=== PATIENT | female | born 1960 | race Caucasian/White ===

== ENCOUNTER → 2023-08-13 | Outpatient (CLI) | payer OTHER, SELFPAY ==
--- NOTE | 2023-08-13 | IMM_PTH ---
PATHOLOGY RESULTS PATIENT: MANNY DUGAN LOC: [facility] U#:[id number] AGE/SX: 63/F ROOM: RE08/13/[address]: Dr. Morris Ryan MD : 1960 BED: DIS: 08/13/2023 SPEC #: [id number] RECD: 08/15/23 14:31 STATUS: HEATHER REQ #: [id number] MIGUEL: 08/13/23 00:[address]: Morris Ryan DEPT: IMMUNOHISTOCHEMISTRY RECD BY: Amber Mehta ENTERED: 08/15/23 14:32 SP TYPE: IMMUNO OTHR DR: CELSO Bernard Tissues: Left breast, NOS Procedures: CALPONIN-1 (add) CK5-6 (add) CK8 (add) E-CAD (add) HER2 SIMRAN (add) KI-67 (add) P53 (add) FL (add) IN SITU HYBRIDIZATION P40 (add) ER (initial) PHYSICIAN & [address] [address] SPECIMEN INFORMATION: Tissue Source: Left breast Clinical Info: Left breast mass Specimen Number: [id number] CPT code: 37808, 21709 x6, 16318 x3, 38970 x2 METHODOLOGY: Deparaffinized sections of prefer/formalin-fixed tissue or PAP/DQ stained slides are incubated with monoclonal/polyclonal antibodies/oligonucleotide probes. Localization is made via biotin free immunoperoxidase method. Appropriate controls are performed and reacted as expected. Results on target cell population are indicated in the following table: RESULTS: ANTIBODY / CLONE RESULT E-Cad (ECH-6) positive CK8 (97ihyvY46) positive Calponin-1 (UE945N) negative (background staining) CK5-6 (D5 & 1684) positive (tumor cells) P40 (BC28) negative P53 (DO-7) positive, missense mutation pattern Ki-67 (30-9) positive, low MORPHOMETRIC ANALYSIS ER (clone 6F11) 0% FL (clone 16/1E2) 0% Her-2Neu (clone CB11) 1-2+ The prognostic test for HER2 is performed on formalin-fixed paraffin embedded tissue. A 3+ (positive) staining pattern is defined as intense, homogeneous, complete, circumferential membranous staining in >10% of contiguous tumor cells. A similar weak (2+) staining pattern is interpreted as equivocal. SIDDHARTHA follow-up testing is recommended for all equivocal cases. Positivity/negativity for ER/FL is reported if > or < 1% of the tumor cells are immuno- reactive, respectively. The ASCO/CAP criteria is used for scoring. Reference: Journal of Clinical Oncology, 2013; 31:0289-4577 & 2010; 16:1856-2571. Ischemic time: Less than one hour. Duration of fixation: 29.5 Hrs; Sample Adequate: Yes. These assays have not been validated on decalcified tissues. Results should be interpreted with caution given the likelihood of false negativity on decalcified specimens or fixation greater than 72 hours. Alternative testing methods (FISH/dualISH for Her2; gene expression for ER) are recommended, if applicable. Please notify the laboratory if additional testing is required. These tests were developed and their performance characteristics determined by [facility]. They may not have been cleared or approved by the U.S. Food and Drug Administration. The FDA has determined that such clearance or approval is not necessary. The above immunohistochemical/dualISH markers are ordered and reviewed by the Pathologist. INTERPRETATION: Left breast, core biopsy: Invasive ductal carcinoma. Negative for estrogen receptors (unfavorable prognostic indicator). Negative for progesterone receptors (unfavorable prognostic indicator). Equivocal for overexpression of TVN8azb. See comment. SJ:israel 08/19/2023 Comment: The tumor shows basal-like pattern. This case has been reviewed in consultation with Dr. Wade who concurs with the above diagnosis. ADDENDUM ADDENDUM 08/20/2023 12:28 IN SITU HYBRIDIZATION (SIDDHARTHA) FOR HER2 Interpretation: Positive / Amplified HER2 : CEP-17 Ratio: 2.3 Average HER2 Signal: 3.85 Average CEP-17 Signal: 1.65 Number of Tumor Cells Scanned: 50 Interpretative Information: The INFORM HER2 Dual SIDDHARTHA DNA Probe Cocktail assay is performed on formalin-fixed paraffin embedded tissue and determines HER2 gene status by detecting HER2 copies via silver in situ hybridization (SISH) and Chromosome 17 copies via chromogenic red in situ hybridization on tumor cells. A minimum of 20 cells representing > 10% of contiguous and homogeneous invasive tumor cells were analyzed. HER2 gene status is classified as Non-amplified (HER2/Chr17 ratio < 2.0) or Amplified (HER2/Chr17 ratio greater than or equal to 2.0). If the resulting HER2/Chr17 ratio falls within 1.8 - 2.2 (Borderline), retesting by FISH is recommended. Reference: Tasneem AC, Pepito BLACKH, Brionna DG, et al: Recommendations for Human Epidermal Growth Factor Receptor 2 Testing in Breast Cancer: [place] [employer] / [employer] [place] [employer] Clinical Practice Guideline Update. J Clin Oncol 31:4652-7048, 2013. SJ:israel 08/20/2023 Case has been reviewed in consultation with Dr. Wade who concurs with the above diagnosis. IDC:AM
--- NOTE | 2023-08-13 14:15 | BRBX_PTH ---
PATHOLOGY RESULTS PATIENT: MANNY DUGAN LOC: [facility] U#:[id number] AGE/SX: 63/F ROOM: RE08/13/[address]: Dr. Morris Ryan MD : 1960 BED: DIS: 08/13/2023 SPEC #: [id number] RECD: 08/14/23 07:07 STATUS: HEATHER ALEXIA #: [id number] MIGUEL: 08/13/23 14:[address]: Morris Ryan DEPT: SURGICAL PATHOLOGY RECD BY: Jennifer Bo ENTERED: 08/14/23 07:08 SP TYPE: BREAST BX OTHR DR: CELSO Bernard Tissues: Left breast, NOS Procedures: Surgery Specimen Level IV HEADER OPERATION: Left breast biopsy PRE-OP DIAGNOSIS: Left breast mass TISSUE SUBMITTED: Left breast tissue MICROSCOPIC DIAGNOSIS Left breast, core biopsy: Invasive ductal carcinoma, nuclear grade 3 (0.5 cm in greatest length). See comment. SJ:israel 08/15/2023 COMMENT The tumor also shows extensive fibrosis. Immunohistochemistry ([id number]) supports the above diagnosis. The tumor also shows basal like pattern. ER/GA/Qnp1jxn studies are being performed on sections of tumor and the results from this study will be reported separately ([id number]). Case has been reviewed in consultation with Dr. Wade who concurs with the above diagnosis. IDC:AM MICROSCOPIC DESCRIPTION Slides are reviewed. GROSS DESCRIPTION Received in fixative is one container labeled with the patient's name and designated left breast. The specimen consists of multiple elongated fragments of grove-yellow fibroadipose tissue that in aggregate measure 1.0 x 0.3 x 0.1 cm. The entire specimen is submitted in one cassette. / SJ:israel 08/14/2023 TC:0 Ischemic Time: 1 minute Fixation Time: 29.5 hours CPT: 17793
== END | disposition home or self-care (01) ==
PROVIDERS: PCP Physician Assistant; Referring Provider Surgery; Visit Provider Surgery
DX: N63.20 Unspecified lump in the left breast, unspecified quadrant (principal)
CPT/HCPCS: 88305; 88341; 88342; 88368

== ENCOUNTER → 2023-09-01 | Outpatient (CLI) | payer OTHER, SELFPAY ==
--- NOTE | 2023-09-01 12:52 | ECHODONC_ITS ---
Reason For Study: LEFT BREAST CANCER, CHEMOTHERAPY Procedure This was a 2D Doppler, Color Flow transthoracic echocardiogram. Myocardial strain analysis was performed in this exam to aid in the assessment of cardiac function. Exam performed in department. Left Ventricle Normal LV size. Left ventricular systolic function is normal. The estimated ejection fraction is 65 %. Normal diastology for age. No regional wall motion abnormalities noted. Right Ventricle Normal RV size. Normal systolic function. Atria Normal left atrium. Normal right atrium. Mitral Valve Normal mitral valve. Tricuspid Valve Normal tricuspid valve. Mild (1+) tricuspid valve insufficiency. Pulmonary artery systolic pressure is 24 mmHg. Aortic Valve Normal aortic valve. Pulmonic Valve Normal pulmonic valve. Great Vessels Normal aortic root. The pulmonary artery is normal size. Normal inferior vena cava. Pericardium/Pleural No pericardial effusion. MMode/2D Measurements & Calculations LVIDd: 4.0 cm IVSd: 0.69 cm Ao root diam: 3.0 cm LVIDs: 2.7 cm LVPWd: 0.78 cm RVDd: 3.2 cm FS: 33.4 % LAV(MOD-bp): 22.3 ml LVAd ap4: 24.4 cm2 SV(MOD-sp4): 43.6 ml LAV(MOD-bp) Indexed: 13.2 ml/m2 LVLd ap4: 6.9 cm LAV(MOD-sp2): 20.4 ml EDV(MOD-sp4): 69.3 ml LAV(MOD-sp4): 25.0 ml EDV(sp4-el): 73.3 ml LVAs ap4: 13.2 cm2 LVLs ap4: 5.7 cm ESV(MOD-sp4): 25.6 ml ESV(sp4-el): 25.7 ml EF(MOD-sp4): 63.0 % EF(sp4-el): 64.8 % SV(sp4-el): 47.5 ml LA A4 area: 12.2 cm2 LA dimension(2D): 2.6 cm RA A4 area: 9.8 cm2 Time Measurements MV dec time: 0.20 sec Doppler Measurements & Calculations MV E max sha: 72.1 cm/sec Lat Peak E' Sha: 12.3 cm/sec Med Peak E' Sha: 11.3 cm/sec MV A max sha: 53.0 cm/sec E/E' lat: 5.8 E/E' med: 6.4 MV E/A: 1.4 Ao V2 max: 110.1 cm/sec LV V1 max: 96.9 cm/sec PA V2 max: 95.2 cm/sec Ao max P.8 mmHg LV V1 max P.8 mmHg PI end-d sha: 95.2 cm/sec TR max sha: 226.0 cm/sec TR max P.4 mmHg ECHO/ONC Echo Complete Interpretation Summary Normal LV size. Left ventricular systolic function is normal. The estimated ejection fraction is 65 %. Structurally normal valves. The global longitudinal strain is normal. The globa l longitudinal strain = -18.3 % (normal). Ordering Physician: Jose Mares Referring Physician: MARRY FOSTER Performed By: Leatha Riggs RDCS
== END | disposition home or self-care (01) ==
PROVIDERS: PCP Physician Assistant; Referring Provider Internal Medicine Medical Oncology; Visit Provider Internal Medicine Medical Oncology
DX: C50.812 Malignant neoplasm of overlapping sites of left female breast (principal)
CPT/HCPCS: 93306; 93356

== ENCOUNTER → 2023-09-05 | Outpatient (CLI) | payer OTHER, SELFPAY ==
--- NOTE | 2023-09-05 12:23 | MRI_ITS ---
STUDY: BILATERAL BREAST MR WITHOUT AND WITH CONTRAST REASON FOR EXAM: Female, 63 years old. Left breast cancer. TECHNIQUE: Multi-sequence multi-echo imaging of both breasts was performed with a dedicated breast coil. T1-weighted and T2-weighted images were performed before and after the administration of 12 mL of Clariscan contrast. COMPARISON: Left breast ultrasound images dated 08/05/2023 and left breast ultrasound-guided biopsy images dated 08/13/2023. FINDINGS: RIGHT BREAST: Scattered fibroglandular densities with minimal background enhancement. No abnormal enhancing masses or areas of non-mass enhancement in the right breast. LEFT BREAST: Scattered fibroglandular densities with minimal background enhancement. At the 3:00 position 8 cm from the nipple there is an irregular enhancing mass measuring 1.4 cm x 1 cm in diameter, corresponding to the index lesion. No abnormal enhancing masses or areas of non-mass enhancement in the left breast. No enlarged or abnormal lymph nodes. No abnormality in the visualized regions of the chest or liver. MRI/Breast Bilateral W/O and W IMPRESSION: 1.4 cm x 1 cm in diameter irregular enhancing mass corresponding to the index lesion in the left breast. No other abnormality. CATEGORY: BIRADS Category 6: Known Biopsy-Proven Malignancy - Appropriate Action Should Be Taken. A letter regarding these results will be sent to the patient by the facility within 30 days. Electronically Signed: Johny Solis MD at 11:00 EST ,
--- OUTSIDE RECORDS SUMMARY | 2023-09-05 12:35 | XMS RPT_ITS | CCD ---
Author Name Unknown Address [address] [place] [address] Organization [facility] Care Team Providers Care Fur Blender Name Role Phone CHAPMAN, MARRY J Attending Unavailable CHAPMAN, MARRY J Admitting Unavailable CHAPMAN, MARRY J Primary Care Unavailable CHAPMAN, MARRY J Consulting Unavailable PROVIDER, UNKNOWN Consulting Unavailable CHAPMAN, MARRY J Consulting Unavailable CHAPMAN, MARRY J Attending Unavailable CHAPMAN, MARRY J Admitting Unavailable CHAPMAN, MARRY J Primary Care Unavailable PROVIDER, UNKNOWN Consulting Unavailable CHAPMAN, MARRY J Attending Unavailable CHAPMAN, MARRY J Admitting Unavailable CHAPMAN, MARRY J Primary Care Unavailable CHAPMAN, MARRY J Consulting Unavailable PROVIDER, UNKNOWN Consulting Unavailable CHAPMAN, MARRY J Attending Unavailable CHAPMAN, MARRY J Admitting Unavailable CHAPMAN, MARRY J Primary Care Unavailable CHAPMAN, MARRY J Consulting Unavailable PROVIDER, UNKNOWN Consulting Unavailable CHAPMAN, MARRY J Attending Unavailable CHAPMAN, MARRY J Admitting Unavailable CHAPMAN, MARRY J Primary Care Unavailable CHAPMAN, MARRY J Consulting Unavailable PROVIDER, UNKNOWN Consulting Unavailable Chapman KOBI, Marry J Unavailable [phone] Ari PEACE Marry J Unavailable Counseling Provider Unavailable Unavailable Gastroenterology Provider Unavailable Unavai lable General Surgery Provider Unavailable Unavail able Luz Freeman LPN Unavailable Gogoi (scribe), Hemanta Unavailable Unavaila Rebecca Kelley LPN Unavailable Unavailable José Gayle MD Unavailable George SALAS, Danielle Jackson Unavailable Unavail able Ashanti Marques MA Unavailable Unavailable Imani SALAS, Gayla Garner Unavailable Unavaila ble Augustine COLOR DEPOSITING MACHINE TENDER, Clement Unavailable Unavailable Mutersbaugh COLOR DEPOSITING MACHINE TENDER, Poppy K Unavailable Yangi luthervicky Odilon (Scribe), Otilio Unavailable Unavailab le Jude COLOR DEPOSITING MACHINE TENDER, Marilu Arnold Unavailable Unavailab le [place] COL[employer] DEPOSITING MACHINE TENDER, Clarice Spears Unavailable Unavailab le Wengerd COLOR DEPOSITING MACHINE TENDER, Aretha Unavailable Unavailabl e Unavailable Unavailable BERTIN OQUENDO Attending UnavailBERTIN Denny Admitting UnavailMARRY Martinez Referring Unavailable JAZMIN LAU Attending Unavailable MARRY CHAPMAN Referring Unavailable MARRY CHAPMAN Primary Care Unavailable JAZMIN LAU Attending Unavailable MARRY CHAPMAN Primary Care Unavailable CORONA DAVID Attending Unavailable Allergies Allergy Classification Reported Allergen(s) Allergy Type Date of Onset Reaction(s) Facility (4 sources) Amoxicillin Drug Allergy Rash [facility] Medications Current Medications Medication Drug Class(es) Dates Sig (Normalized) Sig (Original) ergocalciferol 1.25 mg oral capsule (4 sources) Provitamin D2 Compound Start: 01-24-2023 take 1 capsule by mouth every week Vitamin D (Ergocalciferol) 1.25 MG (60883 UT) Oral Capsule ; 1 (one) Capsule once a week for 0 days Quantity: 12 {Capsule} Refills: 0 Ordered: 24-Jan-2023 KOBI Chapman Start: 24-Jan-2023 Completed/Discontinued Medications Medication Drug Class(es) Dates Sig (Normalized) Sig (Original) sulfamethoxazole 800 mg / trimethoprim 160 mg oral tablet (4 sources) Dihydrofolate Reductase Inhibitor Antibacterial, Sulfonamide Antimicrobial Start: 02-10-2018 End: 02-15-2018 take 1 tablet by mouth twice daily Bactrim DS 800-160 MG Oral Tablet ; 1(one) Tablet two times daily for 5 days Quantity: 10 {Tablet} Refills: 0 Ordered: 10-Feb-2018 MD José Gayle Start: 10-Feb-2018 End: 15-Feb-2018 Status: Inactive Problems Active Problems Problem Classification Problem Date Documented Da te Episodic/Chronic Abdominal hernia (1 source) Diaphragmatic hernia without obstruction or gangrene; Translations: [Diaphragmatic hernia without obstruction or gangrene] Onset: 06-19-2023 Episodic Abdominal pain (1 source) Epigastric pain; Translations: [Epigastric pain] Onset: 06-19-2023 Episodic Administrative/social admission (8 sources) Other specified counseling; Translations: [Other specified counseling] 01-24-2023 Episodic Alcohol-related disorders (12 sources) Alcohol abuse; Translations: [Alcohol abuse, uncomplicated] 01-24-2023 Chronic Allergic reactions (2 sources) Allergy status to penicillin; Translations: [Allergy status to other antibiotic agents status] Onset: 06-19-2023 Episodic Esophageal disorders (1 source) Esophageal obstruction; Translations: [Esophageal obstruction] Onset: 06-19-2023 Chronic Hemorrhoids (1 source) Other hemorrhoids; Translations: [Other hemorrhoids] Onset: 06-19-2023 Episodic Other bone disease and musculoskeletal deformities (20 sources) Osteopenia; Translations: [Other specified disorders of bone density and structure, unspecified site] 01-24-2023 Episodic Other female genital disorders (8 sources) Pelvic congestion syndrome; Translations: [Other specified conditions associated with female genital organs and menstrual cycle] 01-29-2023 Episodic Other gastrointestinal disorders (12 sources) Abdominal bloating; Translations: [Abdominal distension (gaseous)] 05-21-2023 Episodic Other gastrointestinal disorders (1 source) Abdominal distension (gaseous); Translations: [Abdominal distension (gaseous)] Onset: 06-19-2023 Episodic Other screening for suspected conditions (not mental disorders or infectious disease) (20 sources) Full blood count abnormal; Translations: [Other specified abnormal findings of blood chemistry] Onset: 06-19-2023 01-29-2023 Episodic Residual codes; unclassified (16 sources) Influenza vaccination declined; Translations: [Immunization not carried out because of patient refusal] 01-24-2023 Episodic Residual codes; unclassified (8 sources) Postmenopausal state; Translations: [Asymptomatic menopausal state] 01-24-2023 Episodic Screening and history of mental health and substance abuse codes (1 source) Personal history of nicotine dependence; Translations: [Personal history of nicotine dependence] Onset: 06-19-2023 Episodic Sprains and strains (4 sources) Strain of neck muscle; Translations: [Strain of muscle, fascia and tendon at neck level, initial encounter] 05-02-2017 Episodic Unclassified (4 sources) Number of Children 12-02-2018 Past or Other Problems Problem Classification Problem Date Documented Da te Episodic/Chronic Unclassified (4 sources) Weight loss - The patient has been losing weight for 2 years. The patient's appetite is decreased (pt has been taking care of her dad, feels fine and is not concerned). The patient's dietary intake is decreased. Note for Weight loss : Pt wants to discuss the Covid vaccine, her dad got the booster and a couple weeks later he from covid. Pt had covid 2 weeks ago.Last OV was 11/2018 - weight at that time was 135.Today it is 129.Denies night sweats, fevers, etc. Feels fine. 06-25-2021 Unclassified (4 sources) Well Adult, female - The patient feels well with no complaints, has good energy level and is sleeping well. The patient has a balanced diet and takes no supplemental vitamins & iron. The patient does not exercise. The patient sleeps 8 hours per night. 05-11-2018 Unclassified (4 sources) UTI - Symptoms include urinary frequency and urinary urgency. There is no assiciated pain. Onset was sudden 1 day(s) ago. There is no known event that preceded symptom onset. The symptoms occur constantly. The patient describes this as moderate in severity and worsening. Associated symptoms do not include fever or nausea. 02-10-2018 Unclassified (4 sources) UTI - Symptoms include dysuria, urinary frequency, urinary urgency and back pain (lower back pain), but do not include hematuria, dark urine, malodorous urine, flank pain or abdominal pain. The patient describes the pain as dull and aching. Onset was gradual 3 day(s) ago. The symptoms occur constantly. The patient describes this as worsening. Associated symptoms include nausea, but do not include fever, chills or vomiting. Note for UTI : Been taking Uristat. Patient has been having neck and right shoulder pain. Has had the shoulder pain for awhile and neck crunches . The shoulder pain is described as being achy and the posterior neck pain is more of a sharp pain. Did have imaging done through chiropractor. Wonders if she had a rotator cuff tear in the past. Has a knot in the back of her neck. 05-02-2017 Results Test Name Value Interpretation Reference Range Facil ity Vital Signs Date Time Vital Sign Value Performing Clinician Faci lity 01-24-2023 10:040400 Body weight 60.78 kg Clement Bradshaw LPN [facility], [facility] 01-24-2023 10:04040 Diastolic blood pressure 73 mm[Hg] Clement Bradshaw LPN [facility], [facility], [facility]. Encounters Encounter Date Encounter Type Care Provider Facility Start: 09-12-[address] [facility] Start: 08-26-2023 End: 08-26-2023 ambulatory MARRY CHAPMAN [facility] Start: 08-06-2023 End: 08-06-2023 Orders Marry Harriser PA-C Work Phone: [facility] Start: 08-05-2023 End: 08-05-2023 [facility] Start: 07-28-2023 End: 07-28-2023 [facility] Start: 06-19-2023 End: 06-19-2023 ambulatory BERTIN OQUENDO [facility] Start: 05-23-2023 End: 05-23-2023 ambulatory MARRY Hernández CHAPMAN [facility] Start: 05-21-2023 End: 05-21-2023 Orders Marry Harriser PA-C Work Phone: [facility], [facility] Start: 01-29-2023 End: 01-29-2023 Orders Marry Chapman PA-C Work Phone: [facility], [facility] Start: 01-28-2023 End: 01-28-2023 ambulatory MARRY Jarrell [facility] Start: 01-28-2023 End: 01-28-2023 [facility] Start: 01-24-2023 End: 01-24-2023 Medical examinations/reports status Mrary Chapman PA-C Work Phone: [facility] Start: 01-24-2023 End: 01-24-2023 Patient encounter procedure Marry Chapman PA-C Work Phone: [facility] Start: 01-13-2023 End: 01-13-2023 ambulatory MARRY CHAPMAN [facility] Start: 01-02-2023 End: 01-02-2023 Orders Marry Chapman PA-C Work Phone: [facility]. Start: 01-31-2022 End: 01-30-2022 Historical Summary Marry Chapman PA-C Work Phone: [employer]. Start: 01-31-2022 End: 01-31-2022 Manual pelvic examination Marry HOUSTON-C Work Phone: [facility] Start: 01-31-2022 End: 01-31-2022 Patient encounter procedure Marry HOUSTON-C Work Phone: [facility]. Start: 01-25-2022 End: 01-25-2022 Orders Marry Chapman PA-C Work Phone: [facility]. Start: 06-25-2021 End: 06-25-2021 Patient encounter procedure Marry Chapman PA-C Work Phone: [employer] Start: 05-24-2020 End: 05-24-2020 Orders Marry Chapman PA-C Work Phone: [facility]. Start: 09-02-2019 End: 09-03-2019 Orders Marry Chapman PA-C Work Phone: [facility]. Start: 06-18-2019 End: 06-18-2019 Orders Marry Chapman PA-C Work Phone: [facility]. Start: 12-03-2018 End: 12-03-2018 Historical Summary Marry Chapman PA-C Work Phone: [employer] Start: 12-03-2018 End: 12-03-2018 Orders Marry Harriser PA-C Work Phone: [facility]. Start: 12-02-2018 End: 11-30-2018 Historical Summary Marry Harriser PA-C Work Phone: [facility]. Start: 12-02-2018 End: 12-02-2018 Patient encounter procedure Aretha Perry LPN [facility] Start: 12-02-2018 End: 12-02-2018 Periodic preventive med est patient 40-64yrs Marry Chapman PA-C Work Phone: [facility]. Start: 05-11-2018 End: 05-11-2018 Medical examinations/reports status Marry Chapman PA-C Work Phone: [facility] [employer] Start: 05-11-2018 End: 05-11-2018 Office outpatient visit 15 minutes Marry Chapman PA-C Work Phone: [employer]. Start: 04-17-2018 End: 04-17-2018 Orders Marry Chapman PA-C Work Phone: [facility]. Start: 02-10-2018 End: 02-10-2018 Office outpatient visit 15 minutes Marry Chapman PA-C Work Phone: [facility]. Start: 07-04-2017 End: 07-04-2017 Patient encounter status Marry Harriser PA-C Work Phone: [facility] Start: 07-04-2017 End: 07-04-2017 Periodic preventive med est patient 40-64yrs Marry Chapman PA-C Work Phone: [facility]. Start: 06-20-2017 End: 06-24-2017 Orders Marry Chapman PA-C Work Phone: [facility]. Start: 06-10-2017 End: 11-02-2017 Orders Marry Chapman PA-C Work Phone: [employer] Start: 05-02-2017 End: 05-02-2017 Office outpatient visit 15 minutes Marry Chapman PA-C Work Phone: [employer] Manual pelvic examination Clement Bradshaw LPN [employer]; [employer] Medical examinations/reports status Marry Chapman PA-C Work Phone: [employer]; [employer] Procedures Date Procedure Procedure Detail Performing Clinician Start: 08-26-2023 Follow-up visit Follow-up JAZMIN FLOWERS Start: 05-21-2023 End: 08-06-2023 Screening digital breast tomosynthesis bi Marry Chapman PA-C Work Phone: Start: 01-24-2023 End: 01-24-2023 Depression screening Marry Booker Work Phone: Start: 01-24-2023 End: 01-24-2023 Scr dep neg, no plan reqd Marry ROMEOC Work Phone: Start: 01-24-2023 End: 01-29-2023 Ct abdomen & pelvis w/contrast material Marry ROMEOC Work Phone: Start: 01-13-2023 End: 01-13-2023 Lab findings surveillance Clement JASSO Plan of Treatment Date Care Activity Detail Author Start: 01-29-2023 Blood count complete auto&auto difrntl wbc CBC, PLATELETS & AUT DIFF (F) (86191) Start: 29-Jan-2023 14:07 Request [employer]; [employer] Start: 01-24-2023 Screening digital br east tomosynthesis bi Mammogram 3D (tomosynthesis), bilateral (10790) Start: 24-Jan-2023 Intent [employer]; [facility] Start: 01-31-2022 Provider Instruction s for Treatment [facility] HM Issues, 50-64 female Indication: Encounter for routine pelvic examination, 50-64 (Addyamed from Encounter for routine gynecological examination) Start: 31-Jan-2022 Instruction Type: Provider Instructions for Treatment [facility] Start: 05-02-2017 Radex spine cervical 4 or 5 views Cervical Spine x-ray (12224) Start: 02-May-2017 Intent [facility] [employer], [employer] Payers Date Payer Category Payer Unknown [id number] [id number] 1960 Unknown [id number] [id number] 1960 Unknown [id number] [id number] 1960 Unknown [id number] 2.16.84 [id number] 1960 Unknown [id number] 2.16.84 [id number] 1960 Unknown [id number] 2.16. [id number] 1960 Unknown [id number] 2.16. [id number] 1960 Unknown [id number] 2.16. [id number] 1960 Unknown [id number] 2.16. [id number] Unknown [id number] Unknown [employer] Unknown [id number] Social History Date Type Detail Facility Alcohol Use: Alcohol Use: ; M ore than 7 drinks per week. [facility] [employer], [employer]. Caffeine Use Caffeine Use [employer] Tobacco Use: Tobacco Use: ; Former smoker . [employer] [employer], [employer]. Female [employer] [facility] Work Phone: Ex-smoker [facility] [employer] [facility]. Work Phone: Summary Purpose Family History No Family History Records Found Diabetes Mellitus Type II Status:Active Commen ts:Maternal Grandmother. Paternal Grandmother. Lung Cancer Status:Active Comments:Mother. Diabetes Mellitus Type II Status:Active Commen ts:Maternal Grandmother. Paternal Grandmother. Lung Cancer Status:Active Comments:Mother. Diabetes Mellitus Type II Status:Active Commen ts:Maternal Grandmother. Paternal Grandmother. Lung Cancer Status:Active Comments:Mother. Diabetes Mellitus Type II Status:Active Commen ts:Maternal Grandmother. Paternal Grandmother. Lung Cancer Status:Active Comments:Mother. Advance Directives No Advanced Directives Records FoundNo Advanced Directives Records FoundNo Advanced Directives Records FoundNo Advanced Directives Records FoundNo Advanced Directives Records Found Additional Source Comments INFORMATION SOURCE (unrecogn ized section and content) DATE CREATED AUTHOR AUTHOR'S ORGANIZ ATION 03/28/2020 [facility] DATE CREATED AUTHOR AUTHOR'S ORGANIZ ATION 02/03/2022 [facility] DATE CREATED AUTHOR AUTHOR'S ORGANIZ ATION 08/06/2023 [facility] DATE CREATED AUTHOR AUTHOR'S ORGANIZ ATION 09/03/2023 [facility] FOR RECORDS PERTAINING TO PATIENTS WHO ARE OR HAVE BEEN ENROLLED IN A CHEMICAL DEPENDENCY/SUBSTANCEABUSE PROGRAM, SOME INFORMATION MAY BE OMITTED. This clinical summary was aggregated from multiple sources. Caution should be exercised in using it in the provision of clinical care. This summary normalizes information from multiple sources, and as a consequence, information in this document may materially change the coding, format and clinical context of patient data. In addition, data may be omitted in some cases. CLINICAL DECISIONS SHOULD BE BASED ON THE PRIMARY CLINICAL RECORDS. [employer] provides no warranty or guarantee of the accuracy or completeness of information in this document.
[2023-09-05 13:20] LABS: CREATININE FINGERSTICK < 1.0 mg/dL (0.55-1.02); EGFR FINGERSTICK > 60.0000 mL/min (>60)
== END | disposition home or self-care (01) ==
PROVIDERS: PCP Physician Assistant; Referring Provider Internal Medicine Medical Oncology; Visit Provider Internal Medicine Medical Oncology
DX: C50.812 Malignant neoplasm of overlapping sites of left female breast (principal)
CPT/HCPCS: 77049; A9575; A4216; C8908